=== PATIENT | male | born 1985 | race African-American/Black ===

== ENCOUNTER 2024-09-05 08:54 | Outpatient (AMB) | payer OTHER, SELFPAY ==
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
[2024-09-05 09:02] VITALS: BP 124/78; PULSE 78; RESP 15; O2SAT 99; BMI 50.1
== END 2024-09-05 10:10 | disposition home or self-care (01) ==
LOC: HO.PMC 08:54
PROVIDERS: PCP Pediatrics; Visit Provider Internal Medicine
DX: M54.51 Vertebrogenic low back pain (principal); M51.369 Other intervertebral disc degeneration, lumbar region without mention of lumbar back pain or lower extremity pain
CPT/HCPCS: 99204

== ENCOUNTER → 2024-09-05 08:54 | Outpatient (BNVA) | payer OTHER, SELFPAY | PROVIDERS: PCP Pediatrics; Visit Provider Internal Medicine ==